=== PATIENT | male | born 1950 | race Caucasian/White ===

== ENCOUNTER 2019-06-22 13:22 | Inpatient (IN) | payer MEDICARE, OTHER ==
[~2019-06-22] VITALS: Ht 165.1 cm; Wt 72.6 kg
[~2019-06-22 13:22] MED LIST: AMLODIPINE-BEN1 EAC5 PO; CARBIDOPA-LEVO1 EAC1 PO; FINASTERIDE5 MG PO; HYDROCHLOROTHIA25 MG PO; LUMIGAN2.5 M1 OP; MYRBETRIQ50 MG PO; TERBINAFINE HC250 MG PO
[2019-06-22] MEDS ORDERED: SODIUM CHLORIDE 0.9% 1000ML 1,000 ML IV STA ×2 (13:32→15:54)
--- NOTE | 2019-06-22 13:53 | Diagnostic Imaging Report ---
Exam: Head CT without contrast History: Possible stroke, collapse data. Comparison studies: None Technique: Axial images were obtained from the skull base to the vertex. Coronal and sagittal images reconstructed from the axial data. Dose modulation, iterative reconstruction, and/or weight based adjustment of the mA/kV was utilized to reduce the radiation dose to as low as reasonably achievable. Radiation dose: Total DLP: 921.4 mGy*cm. Estimated effective dose: DLP x 0.015 Intravenous contrast: None Findings: Scalp: No abnormalities. Bones: No fractures, blastic or lytic lesions. Brain sulci: Appropriate for age. Ventricles: Normal in size and configuration. No hydrocephalus. Extra-axial spaces: No masses, no fluid collection. Parenchyma: No mass, acute hemorrhage or acute cortical vascular insults. A few scattered hypodensities in the supratentorial white matter are nonspecific but most compatible with chronic small vessel ischemic changes. Sellar/suprasellar region: No abnormalities. Craniocervical junction: Patent foramen magnum. No Chiari one malformation. Included paranasal sinuses: Partially imaged left maxillary sinus is opacified. The left anterior ethmoids are nearly completely opacified and there is mucosal thickening along the left inferior frontal sinus. Incidental findings: Atherosclerotic calcifications in the carotid siphons and intradural vertebral arteries. IMPRESSION: 1. No acute intracranial abnormalities. 2. Mild chronic microvascular ischemic changes. Signed by: Dr. Juve Vick M.D. on 06/22/2019 1:50 PM
[2019-06-22 14:26] LABS: BASOPHILS % 0.1 % (0.0-1.0); HEMATOCRIT 39.8 % (38.2-49.6); HEMOGLOBIN 13.5 g/dL (14.0-18.0); LYMPHOCYTES # (AUTO) 0.6 (1.0-3.2); LYMPHOCYTES % 8.6 % (18.0-39.1); MEAN CORPUSCULAR HEMOGLOBIN 30.5 pg (28-32); MEAN CORPUSCULAR HGB CONC 33.9 g/dL (31-35); MEAN CORPUSCULAR VOLUME 89.8 fL (81-99); MONOCYTES # (AUTO) 1.1 (0.2-0.8); MONOCYTES % 14.2 % (4.4-11.3); NEUTROPHILS # (AUTO) 5.7 (2.1-6.9); NEUTROPHILS % 76.4 % (38.7-80.0); PLATELET COUNT 249 x10e3/uL (140-360); RED BLOOD COUNT 4.43 x10e6/uL (4.3-5.7); RED CELL DISTRIBUTION WIDTH 12.3 % (11.7-14.4)
--- NOTE | 2019-06-22 14:31 | Diagnostic Imaging Report ---
EXAMINATION: CHEST SINGLE (PORTABLE) INDICATION: Weakness COMPARISON: None FINDINGS: Evaluation is limited by the patient's severe kyphosis. The head and neck soft tissues obscure evaluation of the lung apices. LINES/TUBES:None LUNGS:The lungs are well-inflated. No focal consolidation or pulmonary edema. PLEURA:No pleural effusion or pneumothorax. MEDIASTINUM:The cardiomediastinal silhouette appears normal in size and shape. BONES/SOFT TISSUES:No acute osseous injury. ABDOMEN:No free air under the diaphragm. IMPRESSION: Lung apices obscured by head and neck soft tissues secondary to patient's kyphosis. No definite focal pneumonia or pulmonary edema. Signed by: Kd Montalvo MD on 06/22/2019 2:27 PM
[2019-06-22 14:34] LABS: INR 1.08; PROTHROMBIN TIME 14.7 seconds (11.9-14.5)
[2019-06-22 14:35] LABS: PARTIAL THROMBOPLASTIN TIME 33.4 seconds (23.8-35.5)
[2019-06-22 14:41] LABS: ALANINE AMINOTRANSFERASE 17 IU/L (0-55); ALBUMIN 3.1 g/dL (3.5-5.0); ALBUMIN/GLOBULIN RATIO 0.7 (0.8-2.0); ALKALINE PHOSPHATASE 72 IU/L (40-150); ANION GAP 16.3 mmol/L (8-16); BLOOD UREA NITROGEN 42 mg/dL (7-26); BUN/CREATININE RATIO 33 (6-25); CALCIUM 9.6 mg/dL (8.4-10.2); CARBON DIOXIDE 21 mmol/L (22-29); CHLORIDE 104 mmol/L (98-107); CREATININE, SERUM 1.27 mg/dL (0.72-1.25); EST GLOMERULAR FILTRATION RATE 56 ML/MIN (60-); GLUCOSE 99 mg/dL (74-118); POTASSIUM 4.3 mmol/L (3.5-5.1); SODIUM 137 mmol/L (136-145)
[2019-06-22 14:49] LABS: B-TYPE NATRIURETIC PEPTIDE2 46.9 pg/mL (0-100)
[2019-06-22] MEDS ORDERED: SODIUM CHLORIDE FLUSH 10 ML SYR INJ PRN (15:15)
[2019-06-22] MEDS ORDERED: ONDANSETRON HCL INJ 2MG/ML 2ML 2 MG/ML VIAL IV PRN (15:15)
[2019-06-22 15:16] LABS: CREATINE KINASE 13399 IU/L (30-200)
[2019-06-22 15:35] LABS: BILIRUBIN,URINE SMALL (NEGATIVE); CLARITY,URINE SL CLOUDY (CLEAR); COLOR,URINE YELLOW (YELLOW); KETONES,URINE 1+ (NEGATIVE); LEUKOCYTE ESTERASE ,URINE NEGATIVE (NEGATIVE); NITRITE,URINE NEGATIVE (NEGATIVE); PROTEIN,URINE DIPSTICK 2+ (NEGATIVE); URINE UROBILINOGEN 0.2 mg/dL (0.2 - 1)
[2019-06-22 15:55] LABS: AMORPHOUS SEDIMENT,URINE MODERATE (FEW); BACTERIA,URINE MODERATE /HPF; EPITHELIAL CELLS,URINE FEW /LPF; HYALINE CASTS 0-1 (0-1)
[2019-06-22] MEDS ORDERED: CEFEPIME HCL 1 GM VIAL IV SCH (16:00)
[2019-06-22] MEDS ORDERED: CEFEPIME 1GM/NS 0.9% 50 ML 50 ML IV ONE (16:15)
[2019-06-22 17:18] VITALS: BP_SYST 102; BP_SYST 110; BP_DIAS 59
--- NOTE | 2019-06-22 17:18 | NUR ---
Received patient from ER. Respiration even and unlabored without SOB. BLE bruises noted. Call light in reach.
[2019-06-22 17:20] VITALS: BP 102/59
--- NOTE | 2019-06-22 19:00 | NUR ---
Report given to security shift supervisor. Respiration even and unlabored without SOB. Call light in reach.
[2019-06-22] MEDS: CARBIDOPA/LEVODOPA 25/100 TAB PO SCH (20:33)
[2019-06-22 20:45] VITALS: BP 124/70
[2019-06-22 21:08] VITALS: BP 124/70
--- NOTE | 2019-06-22 21:29 | History and Physical ---
CHIEF COMPLAINT: The patient is a 68-year-old male, who came in with confusion and acute mental status changes and weakness with tremors and altered mental status. HISTORY OF PRESENT ILLNESS: This is Mr. Ezra Magallanes with a history of Parkinson's disease with usual state of health until about 1-3 days. Prior to admission, the patient was noticed by his uncle's caregiver to be slumped over and had some pain one day prior to admission. The patient's daughter, who is the stained glass artist went over to look at him and the patient was found to be in a position, fallen over and also with feces and urine in his garments and the patient was brought to the office cleaned up in a wheelchair. The patient is usually able to walk even with his Parkinson's. The patient is alert, however, oriented x2 and the patient was brought in and was admitted to the hospital for rhabdomyolysis. The nature of injury or fall is not known. According to the patient, the patient has slipped down to the floor, but a non-mechanism of fall. Downtime, the patient was on the floor is unknown, but his CK was quite elevated at 13,000, indicating rhabdomyolysis and possible fall with lying in a state for multiple days or hours. PAST MEDICAL HISTORY: History of hypertension, history of benign prostatic hypertrophy, history of prostatic cancer, history of incontinence, and history of fungal infection. CURRENT MEDICATIONS: He takes at home are amlodipine, benazepril 10 mg to 20 mg, Lumigan for glaucoma 2.5 mL drops, carbidopa/levodopa 25/100 three times a day, finasteride 5 mg daily, hydrochlorothiazide 25 mg daily, Myrbetriq 50 mg ER, and terbinafine 250 mg once a day. PAST SURGICAL HISTORY: History of TURP by Dr. Norris for prostatic cancer, otherwise noncontributory. ALLERGIES: NO KNOWN DRUG ALLERGIES. FAMILY HISTORY: Noncontributory. SOCIAL HISTORY: No EtOH. No IV drug abuse. Lives with his uncle, who is also bedridden. The patient has no smoking history and no EtOH history. REVIEW OF SYSTEMS: Negative for chest pain. No shortness of breath. No nausea. No vomiting. No diarrhea. No constipation. No rectal bleeding. No hematochezia. No hematemesis. Positive for tremors, which are constant with his Parkinson's disease and bradykinesia and also slow movement. PHYSICAL EXAMINATION: GENERAL: The patient is alert and oriented x3 at this time. The patient has coarse tremors throughout. HEENT: Normocephalic. The patient has torticollis towards the right side. Eyes, no conjunctival finding. ENT, there is intact pharynx normal and no edema. NECK: As mentioned above, torticollis. No meningeal signs. No lymphadenopathy. CVS: S1 and S2. Regular rate. No murmurs and no extra systoles. RESPIRATIONS: Decrease breath sounds into the lower bases, otherwise normal. No crackles, no wheezes and no adventitious sounds. ABDOMEN: Soft, nontender, nondistended. No organomegaly present. BACK: As mentioned above, increased kyphosis. No CVA tenderness. SKIN: Warm. Some ecchymosis and some laceration found on the elbow and also on the forearm. EXTREMITIES: Otherwise no clubbing, no cyanosis, no edema. NEUROLOGIC: Positive for coarse tremors and also torticollis. The patient has decreased sensation in the lower extremities. In the ED, EKG was done. No acute ischemia. Normal EKG noted. No tachycardia. No normal P waves and increased voltage LVH by criteria. Chest x-ray; normal chest x-ray. CT of the head was done, showed no acute intracranial abnormalities, mild chronic microvascular ischemic changes. LABORATORY VALUES: White count of 7.4, hemoglobin of 13.5, hematocrit of 39.8. Lymphocyte was 8.6, monocyte of 14.2. Chemistry shows sodium 137, potassium 4.3, BUN of 42, creatinine of 1.27, and GFR of 56. Lactic acid was 2.6, AST of 214, creatine kinase of 13,399, CK-MB was 71.10. BNP was 46.9. ASSESSMENT: Mr. Ezra Magallanes with: 1. Acute mental status changes. 2. Lactic acidosis, probably metabolic in nature. 3. Rhabdomyolysis. 4. Parkinson's disease. 5. Hypertension. 6. Dehydration. 7. Acute renal failure. 8. History of prostate cancer. PLAN: IV hydration has been instituted. The patient's vital signs have normalized. We will hold back on his diuretics and his blood pressure medicines at this time. Fluids are running. Repeat his CK tomorrow. Continue his Parkinson's medications with caution. Continue monitoring his electrolytes in the morning. Repeat CK in the morning and continue monitoring the patient. Physical therapy should be instituted in 1 to 2 days and plan and disposition would be to discharge the patient hopefully to SNF because of the nature of fall and also for rehabilitation. Further recommendation per clinical course. We will continue to monitor the patient and will follow up the patient in the morning with lytes. MD JUDY Chiu/MODL /[id number]
[2019-06-23] VITALS (8 sets, daily range): BP systolic 115–153; BP diastolic 69–87
[2019-06-23 05:35] LABS: BASOPHILS % 0.2 % (0.0-1.0); HEMATOCRIT 40.4 % (38.2-49.6); HEMOGLOBIN 13.2 g/dL (14.0-18.0); LYMPHOCYTES # (AUTO) 0.8 (1.0-3.2); LYMPHOCYTES % 9.2 % (18.0-39.1); MEAN CORPUSCULAR HEMOGLOBIN 29.7 pg (28-32); MEAN CORPUSCULAR HGB CONC 32.7 g/dL (31-35); MONOCYTES # (AUTO) 0.7 (0.2-0.8); MONOCYTES % 8.6 % (4.4-11.3); NEUTROPHILS # (AUTO) 6.8 (2.1-6.9); NEUTROPHILS % 81.6 % (38.7-80.0); PLATELET COUNT 296 x10e3/uL (140-360); RED BLOOD COUNT 4.44 x10e6/uL (4.3-5.7); RED CELL DISTRIBUTION WIDTH 12.4 % (11.7-14.4)
[2019-06-23 06:01] LABS: ALANINE AMINOTRANSFERASE 26 IU/L (0-55); ALBUMIN 2.9 g/dL (3.5-5.0); ALBUMIN/GLOBULIN RATIO 0.7 (0.8-2.0); ALKALINE PHOSPHATASE 70 IU/L (40-150); ANION GAP 15.1 mmol/L (8-16); BLOOD UREA NITROGEN 38 mg/dL (7-26); BUN/CREATININE RATIO 37 (6-25); CALCIUM 9.4 mg/dL (8.4-10.2); CARBON DIOXIDE 19 mmol/L (22-29); CHLORIDE 109 mmol/L (98-107); CREATININE, SERUM 1.02 mg/dL (0.72-1.25); EST GLOMERULAR FILTRATION RATE > 60 ML/MIN (60-); GLUCOSE 108 mg/dL (74-118); POTASSIUM 4.1 mmol/L (3.5-5.1); SODIUM 139 mmol/L (136-145)
[2019-06-23 06:05] LABS: CREATINE KINASE 10979 IU/L (30-200)
[2019-06-23 06:36] LABS: CREATINE KINASE 10975 IU/L (30-200)
--- NOTE | 2019-06-23 06:43 | Diagnostic Imaging Report ---
EXAMINATION: CHEST SINGLE (PORTABLE) INDICATION: ^Y ^WEAKNESS ^[id number] ^[id number] COMPARISON: None FINDINGS: AP view TUBES and LINES: None. LUNGS: Low lung volumes. Lungs are grossly clear. PLEURA: No pleural effusion or pneumothorax. HEART AND MEDIASTINUM: The cardiac silhouette is accentuated by low lung volumes and portable technique. The pulmonary vasculature is grossly unremarkable. BONES AND SOFT TISSUES: No acute osseous lesion. Soft tissues are unremarkable. UPPER ABDOMEN: No free air under the diaphragm. IMPRESSION: Limited study due to portable technique. The lungs are grossly clear. Signed by: Donn Isbell MD on 06/23/2019 6:39 AM
--- NOTE | 2019-06-23 07:00 | NUR ---
RECEIVED PATIENT RESTING AT THIS TIME NO S/S OF DISTRESS. BED LOW, WHEELS LOCKED, SIDE RAILS X2. CALL LIGHT IN REACH WILL CONTINUE TO MONITOR PATIENT.
--- NOTE | 2019-06-23 07:20 | Progress Note ---
DATE: SUBJECTIVE: A 68-year-old male, who comes in with acute rhabdomyolysis, history of acute mental status changes, possible urinary tract infection and history of hypertension. The patient is currently getting fluids, still feeling weak. Tremors are about the same. The patient is unable to talk, but very weak and fatigued. OBJECTIVE: VITAL SIGNS: Temperature is 98.8, pulse of 87, respirations of 18, blood pressure is 138/69, pulse oximetry of 100%. HEENT: Normocephalic and atraumatic. Pupils are reactive. CVS: S1 and S2 normal. Regular rate and rhythm. ABDOMEN: Soft, nontender. EXTREMITIES: No clubbing, no cyanosis, no edema. NEUROLOGIC: The patient has severe torticollis and also fine and coarse tremors. LABORATORY VALUES: Today's white count is 8.36, hemoglobin 13.2, hematocrit of 40.4. Chemistry shows sodium 139, potassium 4.1, BUN of 38, creatinine 1.02, which is normalized. Lactic acid is down to 1.6 from 2.6. The patient's ALT and AST is also elevated to , creatine kinase down to . Troponin is less than 0.01. TSH is 0.572 and BNP of 46.9. The earliest BNP was 13,399. ASSESSMENT: Mr. Ezra Magallanes with: 1. Rhabdomyolysis. Continue with IV resuscitation acute mental status changes. We are working on his urine cultures. The patient was septic when he came in. 2. Lactic acidosis. Continue monitoring. 3. Parkinson disease. We will continue his carbidopa levodopa. 4. Hypertension. We will restart his blood pressure medications. 5. Acute renal failure and dehydration. Continue with fluid resuscitation. 6. History of prostate cancer with radiation enteritis. We will continue monitoring the patient again. PLAN: Further recommendation per clinical course. Lytes will be monitored on a regular basis on a daily basis. DISPOSITION: Discharge in 1 to 2 days, early mobilization of the patient with physical therapy. We will continue to monitor the patient and start PT tomorrow depending on the creatine kinase trend. Ej Pedraza MD ASJ/MODL /[id number]
[2019-06-23] MEDS: SODIUM CHLORIDE 0.9% 1000ML 1,000 ML IV SCH (08:13)
[2019-06-23] MEDS: FINASTERIDE 5 MG TAB PO SCH (08:13)
[2019-06-23] MEDS: AMLODIPINE BESYLATE 10 MG TAB PO SCH ×2 (08:13→09:00)
[2019-06-23] MEDS: CARBIDOPA/LEVODOPA 25/100 TAB PO SCH ×3 (08:13→21:13)
[2019-06-23] MEDS ORDERED: BENAZEPRIL HCL 10 MG TAB PO SCH (09:00)
--- NOTE | 2019-06-23 10:05 | NUR ---
Pt. expressed no spiritual or emotional concerns at this time. Medical Claims Specialist provided hospitality and information on how to reach licensed nuclear operator, if needed. No need to follow at this time. BRIDGET KEENAN Medical Claims Specialist Spiritual Care Department O: [phone]
[2019-06-23] MEDS: BENAZEPRIL HCL 10 MG TAB PO SCH (13:01)
[2019-06-23 14:16] LABS: CREATINE KINASE 11049 IU/L (30-200)
[2019-06-23] MEDS: BIMATOPROST(OPTH) 2.5 ML BOTTLE OP SCH (21:12)
[2019-06-24] VITALS (9 sets, daily range): BP systolic 137–170; BP diastolic 70–91
[2019-06-24] MEDS: SODIUM CHLORIDE 0.9% 1000ML 1,000 ML IV SCH ×3 (04:16→23:00)
[2019-06-24 05:54] LABS: ALANINE AMINOTRANSFERASE 22 IU/L (0-55); ALBUMIN 2.7 g/dL (3.5-5.0); ALBUMIN/GLOBULIN RATIO 0.7 (0.8-2.0); ALKALINE PHOSPHATASE 59 IU/L (40-150); ANION GAP 11.9 mmol/L (8-16); BLOOD UREA NITROGEN 30 mg/dL (7-26); BUN/CREATININE RATIO 36 (6-25); CARBON DIOXIDE 21 mmol/L (22-29); CHLORIDE 111 mmol/L (98-107); CREATININE, SERUM 0.83 mg/dL (0.72-1.25); EST GLOMERULAR FILTRATION RATE > 60 ML/MIN (60-); GLUCOSE 98 mg/dL (74-118); MAGNESIUM 1.9 MG/DL (1.3-2.1); POTASSIUM 3.9 mmol/L (3.5-5.1); SODIUM 140 mmol/L (136-145)
[2019-06-24 05:57] LABS: CREATINE KINASE 8772 IU/L (30-200)
[2019-06-24] MEDS: BENAZEPRIL HCL 10 MG TAB PO SCH (06:13)
[2019-06-24] MEDS: AMLODIPINE BESYLATE 10 MG TAB PO SCH (06:15)
--- NOTE | 2019-06-24 07:50 | Progress Note ---
DATE: SUBJECTIVE: A 68-year-old male, who comes in with acute mental status changes and also rhabdomyolysis. The patient's CK was elevated at 13,000. Currently, doing a little bit better. Mental status is improved. No chest pain. No shortness of breath. Has difficulty in standing up. OBJECTIVE: VITAL SIGNS: Temperature is 97.2, blood pressure is 116/91, and pulse oximetry 100%. HEENT: Normocephalic and atraumatic. Pupils are reactive. The patient has coarse tremors. CVS: S1 and S2 normal. Regular rate and rhythm. ABDOMEN: Nontender and nondistended. EXTREMITIES: No clubbing, no cyanosis, no edema. Multiple ecchymoses present. LABORATORY VALUES: Chemistry; BUN of 30, creatinine 0.83. AST still is 185, trending down. AST 22. Creatine kinase is down to 8772 from 11,000 yesterday. Serology, hepatitis pending. Microbiology, no growth in blood cultures so far. ASSESSMENT: Mr. Ezra Magallanes with: 1. Rhabdomyolysis. Continue IV resuscitation. 2. Acute mental status changes and metabolic encephalopathy. Continue monitoring his mental status. 3. Parkinson's disease. Continue with carbidopa/levodopa. 4. Hypertension. We will introduce another agent into his regimen. 5. Acute renal failure and dehydration, better. BUN is still elevated and denoting still need of fluid resuscitation. 6. History of prostate cancer with radiation enteritis. Continue the same medication. PLAN: Continue monitoring the lytes. Physical therapy will be instituted. SNF consult will be done. Further recommendation per clinical course and we will continue to monitor the patient with his lytes. MD JUDY Chiu/MODL /[id number]
[2019-06-24] MEDS: FINASTERIDE 5 MG TAB PO SCH (08:30)
[2019-06-24] MEDS: CARBIDOPA/LEVODOPA 25/100 TAB PO SCH ×3 (08:30→22:29)
--- NOTE | 2019-06-24 08:42 | NUR ---
DAUGHTER VIPIN [phone], CALLED TO DISCUSS SNF ORDER, LEFT MESSAGE FOR RETURN CALL.
--- NOTE | 2019-06-24 09:08 | NUR ---
DAUGHTER CALLED AND STATES NUMBER PREVIOUSLY LISTED IS EX BROTHER IN LAW NUMBER, SHE GAVE PLAN AND ADDRESS AND NUMBER. [address] [place] [address] SHE DECLINES SNF WANTS TO TAKE HIM TO HER HOME WITH HOME HEALTH AND THERAPY SHE STATES SHE WANTS HER DAD TO GET A PROTEIN TEST TO DETERMINE WHAT HE IS ABSORBING, ALSO GAVE OFFICE INFORMATION TO REACH OUT TO MD THERE WELL LET NURSE KNOW SHE WOULD LIKE TO SPEAK WITH HIM.
--- NOTE | 2019-06-24 13:55 | NUR ---
WOUND CARE CONSULTATION Age=68 YO Zak Score = 19 [employer] Conservative PUP PATIENT VISIT / SKIN CHECK: NO OPEN SKIN AREAS NOTED BRUISES TO ARMS AND LEFT ELBOW CLOSED NON IRRITATED RAISED FATTY TISSUE REPORTED BY PATIENT CYST PRESENT FOR LAST 3 YEARS - RECOMMENDATION: - MAINTAIN CONSERVATIVE PUP STATUS - [employer] Mattress - Offload Heels with Pillows - Turn and Reposition Every 2 Hours Addendum: 06/24/19 at 1359 by Reji Cruz RN Amended: Links added.
[2019-06-24] MEDS ORDERED: HYDRALAZINE HCL 20 MG/ML VIAL IV PRN (16:00)
--- NOTE | 2019-06-24 21:00 | NUR ---
ASSESSMENT DONE.NO RESP.DISTRESS.NO PAIN VOICED.ASSISTED TO USE REST ROOM.VOIDED.BACK TO BED SAFELY.PHONE AND CALL LIGHT WITHIN REACH.INSTRUCTED TO CALL FOR ASSISTANCE NEEDED.D/C IV FLUID.
[2019-06-24] MEDS: BIMATOPROST(OPTH) 2.5 ML BOTTLE OP SCH (22:29)
[2019-06-25] VITALS: BP 149/69
[2019-06-25 04:00] VITALS: BP 166/79
[2019-06-25 06:08] LABS: ALANINE AMINOTRANSFERASE 27 IU/L (0-55); ALBUMIN 2.6 g/dL (3.5-5.0); ALBUMIN/GLOBULIN RATIO 0.8 (0.8-2.0); ALKALINE PHOSPHATASE 53 IU/L (40-150); ANION GAP 8.8 mmol/L (8-16); BLOOD UREA NITROGEN 19 mg/dL (7-26); BUN/CREATININE RATIO 30 (6-25); CALCIUM 8.7 mg/dL (8.4-10.2); CARBON DIOXIDE 24 mmol/L (22-29); CHLORIDE 111 mmol/L (98-107); CREATININE, SERUM 0.64 mg/dL (0.72-1.25); EST GLOMERULAR FILTRATION RATE > 60 ML/MIN (60-); GLUCOSE 92 mg/dL (74-118); MAGNESIUM 1.9 MG/DL (1.3-2.1); POTASSIUM 3.8 mmol/L (3.5-5.1); SODIUM 140 mmol/L (136-145)
[2019-06-25 06:21] LABS: CREATINE KINASE 5602 IU/L (30-200)
--- NOTE | 2019-06-25 07:05 | NUR ---
BEDSIDE SHIFT REPORT GIVEN TO ONCOMING RN.STABLE CONDITION.
[2019-06-25 07:56] VITALS: BP 166/79
[2019-06-25] MEDS: FINASTERIDE 5 MG TAB PO SCH (08:07)
[2019-06-25] MEDS: BENAZEPRIL HCL 10 MG TAB PO SCH (08:07)
[2019-06-25] MEDS: CARBIDOPA/LEVODOPA 25/100 TAB PO SCH (08:07)
[2019-06-25] MEDS: AMLODIPINE BESYLATE 10 MG TAB PO SCH (08:07)
[2019-06-25 08:36] VITALS: BP 158/94
[2019-06-25 11:45] VITALS: BP 132/77
--- NOTE | 2019-06-25 11:59 | NUR ---
home health arranged per social and political studies professor. Dr. Milo coleman to update him and see about discharge order. waiting for return call at this time. tm.
--- NOTE | 2019-06-25 13:50 | Progress Note ---
DATE: SUBJECTIVE: The patient is a 68-year-old male, who came on with rhabdomyolysis, acute renal failure, history of Parkinson disease. The patient is doing better. MEDICATIONS: Reviewed. OBJECTIVE: VITAL SIGNS: Temperature is 98.3, pulse of 84, respirations of 16, and blood pressure is 132/77, pulse oximeter of 100%. HEENT: Normocephalic and atraumatic. Pupils are reactive to light and accommodation. CVS: S1 and S2 normal. Regular rate and rhythm. ABDOMEN: Nontender, nondistended. EXTREMITIES: No clubbing, no cyanosis, no edema. LABORATORY VALUES: Chemistry shows sodium 140, potassium 3.8, BUN of 19, and creatinine 0.64. AST is going down to 128. Creatine kinase is 5602. ASSESSMENT: Mr. Ezra Magallanes with: 1. Acute renal failure. 2. Rhabdomyolysis. 3. Hypertension. 4. Hyperlipidemia. 5. Parkinson disease. PLAN: Okay to discharge home. Adequate water intake has been advised to the patient. Fall precautions have been given. The patient has been working with physical therapy. Discharge plan was to discharge home with home health and also physical therapy at home, which will be done. Further recommendation per clinical course. The patient will be seen in clinic in about a week's time. MD JUDY Chiu/MODL /[id number]
--- NOTE | 2019-06-25 14:04 | NUR ---
patient discharged. IV access removed. youth nutritional monitor removed and returned. discharge instructions reviewed with patient's daughter with no concerns. patient and daughter aware of follow up needed. patient wheeled off unit to daughter's personal vehicle in stable condition.
== END 2019-06-25 15:33 | disposition home or self-care (01) | DRG 871 ==
LOC: ER 13:22 → OBSVTOIN 15:14 → ERHOLD 15:14 → MED/SURG2 17:25
PROVIDERS: ADMIT Family Medicine; ATTEND Family Medicine
DX: A41.9 Sepsis, unspecified organism (principal); G93.41 Metabolic encephalopathy; N17.9 Acute kidney failure, unspecified; M62.82 Rhabdomyolysis; E87.2 Acidosis; K52.0 Gastroenteritis and colitis due to radiation; W01.0XXA Fall on same level from slipping, tripping and stumbling without subsequent striking against object, initial encounter; G20 Parkinson's disease; I10 Essential (primary) hypertension; E86.0 Dehydration; Z85.46 Personal history of malignant neoplasm of prostate; Z83.3 Family history of diabetes mellitus; Z82.49 Family history of ischemic heart disease and other diseases of the circulatory system; N40.0 Benign prostatic hyperplasia without lower urinary tract symptoms
CPT/HCPCS: 36415; 70450; 71045; 80053; 81001; 82550; 82553; 83605; 83735; 83880; 84443; 84484; 85025; 85610; 85730; 87040; 93005; 97139; 99251; 99284; J0360; J0692; J7030